=== PATIENT | female | born 1990 | race Caucasian/White ===

== ENCOUNTER → 2017-09-09 18:47 | Observation (INO) ==
[2017-09-09 17:11] LABS: Basophils % 0.2 %; Eosinophils % 0.2 %; Hematocrit 40.2 % (35.3-44.9); Hemoglobin 13.2 g/dL (11.5-15.4); Immature Granulocytes % 0.7 % (0-4); Lymphocytes # 2.1 K/mcL (0.6-4.6); Lymphocytes % 17.1 %; Mean Corpuscular HGB Conc 32.8 g/dL (31.6-35.5); Mean Corpuscular Hemoglobin 26.6 pg (28.0-33.3); Mean Corpuscular Volume 80.9 fL (83.0-100.0); Mean Platelet Volume 10.7 fL (9.4-12.4); Monocytes # 0.6 K/mcL (0.0-1.3); Monocytes % 4.8 %; Neutrophils # 9.3 K/mcL (1.6-8.9); Platelet Count 272 K/mcL (140-400); Red Blood Count 4.97 M/mcL (3.82-4.97); Red Cell Distribution Width 13.7 % (11.5-14.5)
[2017-09-09 17:14] VITALS: BP 140/84
[2017-09-09 17:24] LABS: Alanine Aminotransferase 13 Units/L (0-55); Aspartate Amino Transferase 16 Units/L (5-34); BUN/Creatinine Ratio 8 (6-26); Lactate Dehydrogenase 144 Units/L (159-327); Uric Acid 3.9 mg/dL (2.6-6.0); eGFR For African Americans > 60 (> 60); eGFR For Non-African Americans > 60 (> 60)
[2017-09-09 17:25] LABS: Amphetamine Screen,Urine Negative ng/mL (Cutoff=1000); Barbiturate Screen,Urine Negative ng/mL (Cutoff=200); Benzodiazepines Screen,Urine Negative ng/mL (Cutoff=200); Blood Urea Nitrogen 5 mg/dL (7-20); Cannabinoid Screen,Urine Negative ng/mL (Cutoff = 50); Cocaine Screen,Urine Negative ng/mL (Cutoff= 300); Opiate Screen,Urine Negative ng/mL (Cutoff=300); Phencyclidine Screen,Urine Negative ng/mL (Cutoff=25)
[2017-09-09 17:26] LABS: Creatinine,Urine 53 mg/dL
[2017-09-09 17:28] LABS: Protein/Creatinine Ratio,Urine < 0.13 mg/mg (0-0.20)
--- NOTE | 2017-09-09 18:16 | OB/GYN Progress Note ---
Date of Encounter: 09/09/17 Time of Encounter: 18:13 - Assessment and Plan (1) 39 weeks gestation of Current Visit: Yes Status: Acute Patient admitted for observation (2) Elevated BP without diagnosis of hypertension Current Visit: Yes Status: Acute PIH evaluation: Lab values including protein creat ratio WNL Subjective - Subjective Principal diagnosis: elevated BP Interval history: Patient is a 27 y/o at 39w2d presents to labor and delivery from OB office for PIH evaluation after having elevated BP in office. Patient denies any headache, dizziness or visual disturbances. Patient reports +FM, denies contractions, LOF or VB. SVE 1/80/-1. Antepartum ROS: movement normal, no loss of fluid, no vaginal bleeding, no contractions Objective - Vital Signs Vital Signs: Vital Signs Temp Pulse Resp BP 09/09/17 17:07 97.6 F 78 14 140/84 Intake and Output 09/09/17 09/09/17 09/09/17 07:59 15:59 23:59 Other: Weight 94.9 kg Patient Weight 09/09/17 23:59 Weight 94.9 kg - Exam FHR: auscultation normal, category 1 FHR comments: 120 bpm moderate variability +15x15 accels no decels noted. CAt. 1 tracing Auscultation: bilateral: normal Abdomen: Present: normal appearance, soft, gravid Uterus: Present: normal Cervical dilation: 1 Cervix effacement: 80 station: -1 Comments: contractions 3-4 min apart however, patient denies feeling contractions. - Labs Labs: Abnormal lab results WBC 12.1 K/mcL (4.3-11.1) H 09/09/17 16:55 MCV 80.9 fL (83.0-100.0) L 09/09/17 16:55 MCH 26.6 pg (28.0-33.3) L 09/09/17 16:55 Neutrophils # 9.3 K/mcL (1.6-8.9) H 09/09/17 16:55 BUN 5 mg/dL (7-20) L 09/09/17 16:55 Lactate Dehydrogenase 144 Units/L (159-327) L 09/09/17 16:55
--- NOTE | 2017-09-09 18:38 | Discharge Summary ---
Date of Encounter: 09/09/17 Time of Encounter: 18:37 - Discharge Diagnosis (1) 39 weeks gestation of Priority: Primary Status: Acute (2) Elevated BP without diagnosis of hypertension Priority: Secondary Status: Acute Comments: BP wnl Lab work WNL Patient scheduled Wednesday for follow up in office - Discharge Medications Home Medications: Vitamins 1 mg PO DAILY 09/09/17 [History] Allergies/Adverse Reactions: 3 Allergy/AdvReac Type Severity Reaction Status Date / Time No Known Allergies Allergy Verified 09/09/17 16:48 Data Procedures and tests throughout hospitalization: Laboratory Tests 09/09/17 09/09/17 09/09/17 16:55 16:55 16:55 WBC 12.1 H RBC 4.97 Hgb 13.2 Hct 40.2 MCV 80.9 L MCH 26.6 L MCHC 32.8 RDW 13.7 Plt Count 272 MPV 10.7 Immature Gran % 0.7 Seg Neutrophils % 77.0 Lymphocytes % 17.1 Monocytes % 4.8 Eosinophils % 0.2 Basophils % 0.2 Neutrophils # 9.3 H Lymphocytes # 2.1 Monocytes # 0.6 Eosinophils # 0.0 Basophils # 0.0 BUN Creatinine Est GFR ( Amer) Est GFR (Non-Af Amer) BUN/Creatinine Ratio Uric Acid AST ALT Lactate Dehydrogenase Urine Creatinine 53 Protein/Creatinin Ratio < 0.13 Urine Total Protein < 7 Urine Opiates Screen Negative Ur Barbiturates Screen Negative Ur Phencyclidine Scrn Negative Ur Amphetamines Screen Negative U Benzodiazepines Scrn Negative Urine Cocaine Screen Negative U Marijuana (THC) Screen Negative 09/09/17 16:55 WBC RBC Hgb Hct MCV MCH MCHC RDW Plt Count MPV Immature Gran % Seg Neutrophils % Lymphocytes % Monocytes % Eosinophils % Basophils % Neutrophils # Lymphocytes # Monocytes # Eosinophils # Basophils # BUN 5 L Creatinine 0.60 Est GFR ( Amer) > 60 Est GFR (Non-Af Amer) > 60 BUN/Creatinine Ratio 8 Uric Acid 3.9 AST 16 ALT 13 Lactate Dehydrogenase 144 L Urine Creatinine Protein/Creatinin Ratio Urine Total Protein Urine Opiates Screen Ur Barbiturates Screen Ur Phencyclidine Scrn Ur Amphetamines Screen U Benzodiazepines Scrn Urine Cocaine Screen U Marijuana (THC) Screen Labs on day of discharge: Labs from last 24 hours 09/09/17 09/09/17 09/09/17 16:55 16:55 16:55 WBC 12.1 H RBC 4.97 Hgb 13.2 Hct 40.2 MCV 80.9 L MCH 26.6 L MCHC 32.8 RDW 13.7 Plt Count 272 MPV 10.7 Immature Gran % 0.7 Seg Neutrophils % 77.0 Lymphocytes % 17.1 Monocytes % 4.8 Eosinophils % 0.2 Basophils % 0.2 Neutrophils # 9.3 H Lymphocytes # 2.1 Monocytes # 0.6 Eosinophils # 0.0 Basophils # 0.0 BUN 5 L Creatinine 0.60 Est GFR ( Amer) > 60 Est GFR (Non-Af Amer) > 60 BUN/Creatinine Ratio 8 Uric Acid 3.9 AST 16 ALT 13 Lactate Dehydrogenase 144 L Urine Creatinine 53 Protein/Creatinin Ratio < 0.13 Urine Total Protein < 7 Urine Opiates Screen Ur Barbiturates Screen Ur Phencyclidine Scrn Ur Amphetamines Screen U Benzodiazepines Scrn Urine Cocaine Screen U Marijuana (THC) Screen 09/09/17 16:55 WBC RBC Hgb Hct MCV MCH MCHC RDW Plt Count MPV Immature Gran % Seg Neutrophils % Lymphocytes % Monocytes % Eosinophils % Basophils % Neutrophils # Lymphocytes # Monocytes # Eosinophils # Basophils # BUN Creatinine Est GFR ( Amer) Est GFR (Non-Af Amer) BUN/Creatinine Ratio Uric Acid AST ALT Lactate Dehydrogenase Urine Creatinine Protein/Creatinin Ratio Urine Total Protein Urine Opiates Screen Negative Ur Barbiturates Screen Negative Ur Phencyclidine Scrn Negative Ur Amphetamines Screen Negative U Benzodiazepines Scrn Negative Urine Cocaine Screen Negative U Marijuana (THC) Screen Negative Date of admission: 09/09/17 16:31 Primary care physician: PCP NONE Discharging clinician: Lisa Turner Anticipated date of discharge: 09/09/17 - Patient Status Disposition: Home, Self-Care Condition: Good Functional capacity at discharge: independent ambulation - Discharge Instructions Follow Up With: NONE,PCP [Primary Care Provider] - Margret Begum CNM [Advanced Practice Nurse] - Additional Instructions: LABOR AND DELIVERY DISCHARGE INSTRUCTIONS Signs and Symptoms to be Reported to your Doctor Immediately: * Sudden gush, continuous or intermittent lead of fluid from vagina (note the time of gush and color of fluid) * Onset of bright red vaginal bleeding with or without pain (if you had a vaginal exam during this visit you may notice some dark red spotting. This is normal.) * Contractions that are 5 minutes apart (from the beginning of one contraction to the beginning of the next) and last 45-60 seonds; contractions that you can no longer walk, talk or laugh through. * A change in the baby's activity. This could be an increase or decrease in activity. * Severe headache which does not go away with tylenol. * Sudden swelling in the face, hands, arms and/or legs. * Upper abdominal pain - sometimes associated with heartburn or nausea and is not relieved by Maalox, Mylanta or Tums. * Kick Counts __ One hour after a meal, lay down on one side in a quiet place. Count the number of time the baby moves during an hour. If less than 6 movements, notify your physician Diet: *Force fluids, 8 to 10 tall glasses of fluid per day - may include popsicles and jello *Limit caffeine - this includes chocolate, coffee, tea, any soft drink containing such as all rani, Lior Yellow and Mountain Dew - Diet and Activity Activity: increase activity as tolerated Diet: regular diet Hospital Course [employer] Time spent discussing smoking cessation with patient: 3 to 10 minutes Time Attestation: Total time spent providing and/or coordinating discharge services: Time Spent: Less than 30 minutes Exam - Constitutional Vitals: Temp Pulse Resp BP 97.6 F 78 14 140/84 09/09/17 17:07 09/09/17 17:07 09/09/17 17:07 09/09/17 17:07 General appearance IM: A&O X 3, pleasant, answers questions appropriately - Respiratory Respiratory exam: Present: CTAB - Cardiovascular Cardiovascular exam IM: Present: RRR, +S1, +S2 - Extremities Exam Extremities exam IM: Present: full ROM, normal capillary refill, normal inspection - Other Additional findings: FHR 120 bpm moderate variability +15x15 accels no decels noted. Cat 1 tracing. contractions 3-4 min apart. - VTE Reasons for not Prescribing Prophylaxis: Treatment not Indicated - Low risk for VTE
== END | disposition home or self-care (01) ==
LOC: 1NENULAB
PROVIDERS: ADMIT Student in an Organized Health Care Education/Training Program; ATTEND Student in an Organized Health Care Education/Training Program

== ENCOUNTER 2017-09-13 17:56 | Inpatient (IN) ==
[2017-09-13 15:43] LABS: Basophils % 0.2 %; Eosinophils # 0.1 K/mcL (0.0-0.6); Eosinophils % 0.4 %; Hematocrit 37.8 % (35.3-44.9); Hemoglobin 12.5 g/dL (11.5-15.4); Immature Granulocytes % 0.7 % (0-4); Immature Platelets 5.5 % (1.1-6.1); Lymphocytes # 1.8 K/mcL (0.6-4.6); Lymphocytes % 15.8 %; Mean Corpuscular HGB Conc 33.1 g/dL (31.6-35.5); Mean Corpuscular Hemoglobin 26.5 pg (28.0-33.3); Mean Corpuscular Volume 80.3 fL (83.0-100.0); Mean Platelet Volume 10.4 fL (9.4-12.4); Monocytes # 0.7 K/mcL (0.0-1.3); Monocytes % 5.7 %; Neutrophils # 8.9 K/mcL (1.6-8.9); Platelet Count 262 K/mcL (140-400); Red Blood Count 4.71 M/mcL (3.82-4.97); Red Cell Distribution Width 13.7 % (11.5-14.5); Segmented Neutrophils % 77.2 %
[2017-09-13 15:56] LABS: Alanine Aminotransferase 13 Units/L (0-55); Aspartate Amino Transferase 16 Units/L (5-34); BUN/Creatinine Ratio 16 (6-26); Blood Urea Nitrogen 9 mg/dL (7-20); Lactate Dehydrogenase 156 Units/L (159-327); Uric Acid 3.9 mg/dL (2.6-6.0); eGFR For African Americans > 60 (> 60); eGFR For Non-African Americans > 60 (> 60)
[2017-09-13 15:58] LABS: Bilirubin,Urine Negative (Negative); Blood,Urine Negative (Negative); Clarity,Urine Clear (Clear); Color,Urine Yellow (Yellow); Glucose,Urine (UA) Normal (Normal); Ketones,Urine Negative (Negative); Leukocyte Esterase,Urine Negative (Negative); Nitrite,Urine Negative (Negative); Protein,Urine Negative (Neg-Trace); Specific Gravity,Urine 1.014 (1.010-1.025); Urobilinogen,Urine Normal (Normal)
[2017-09-13 16:35] LABS: Creatinine,Urine 45 mg/dL
[2017-09-13 16:37] LABS: Protein/Creatinine Ratio,Urine < 0.16 mg/mg (0-0.20)
--- NOTE | 2017-09-13 17:30 | OB/GYN History & Physical ---
Date of Encounter: 09/13/17 Time of Encounter: 17:27 Assessment and Plan (1) Elevated BP without diagnosis of hypertension Current visit: No Status: Acute Monitor BP per routine order PIH labs WNL (2) Non-stress test reactive Current visit: Yes Status: Acute (3) 39 weeks gestation of Current visit: No Status: Acute Admitted for induction of labor at 39.6 weeks History of Present Illness Chief complaint: Induction of Labor HPI: Ms. Ibarra is a 27 year old female at 39w 6d who arrived for PIH evaluation due to BP of 106's/100 in the office today. PIH panel completed and all labs WNL , patient denies headache, visual disturbances, and epigastric pain. Normal blood pressures while here for evaluation. Bilateral upper and lower DTR's +1, negative clonus. Patient offered induction of labor vs. expectant management with repeat ultrasound, NST later this week. Patient chose to continue with induction tonight. She denies pain at this time. Reports positive movement and denies LOF and vaginal bleeding. Blood type A+ GBS negative Rubella and Varicella Immune T. Pallidum negative Past Med Surg Social Fam HX - Past Medical History Source: patient Medical history: no medical history Psychiatric history: no psych history - Past Surgical History Surgical History: no surgical history, other (Tubes in ears as a child.) - Social History Smoking Status: Never smoker Smokeless Tobacco Status: No Alcohol use: none Drug use: none Occupational status: employed Current living situation: Home - Independent Activity Level: Independent ambulation Recent Out of Country Travel Within the Last 8 Weeks: No Exposure or Possible Exposure to Illness During Travel: No - Family History Mother Living Status: Still Living Hx Family Cardiac Disorders: No Hx Family Respiratory Disorders: No Hx Family Cancer: No Hx Family GI Disorders: No Hx Family Endocrine Disorder: Yes (diabetes) Hx Family Neuromuscular Disorders: No Hx Family Neurologic Disorders: No Hx Family HEENT Disorders: No Hx Family Autoimmune Disorders: No Obstetrical History - Pregnancies : 1 Para: 0 Term: 0 : 0 Ab's: 0 Livin Medications and Allergies Vitamins 1 mg PO DAILY 09/09/17 [History] 3 Allergy/AdvReac Type Severity Reaction Status Date / Time No Known Allergies Allergy Verified 09/09/17 16:48 Review of System OB All systems PM: reviewed and no additional remarkable complaints except as stated - Constitutional Constitutional ROS IM: no chills, no fever(s), no headache(s) - Nose, mouth, and throat Nose, mouth and throat: no headache(s) - Cardiovascular Cardiovascular: no chest pain, no edema, no palpitations - Respiratory Respiratory: no cough, no dyspnea - Gastrointestinal Gastrointestinal: no abdominal pain, no diarrhea, no nausea, no vomiting - Genitourinary Genitourinary: no difficulty urinating, no dysuria, no hematuria, no pelvic pain - Muscloskeletal Musculoskeletal: no abnormal gait, no limited range of motion - Integumentary Integumentary: as per HPI - Neurological Nerological: as per HPI, no abnormal movements, no abnormal speech, no behavioral changes - Psychiatric Psychiatric: as per HPI - Endocrine Endocrine: as per HPI - Hematologic/Lymphatic Hematologic/Lymphatic: as per HPI - Allergic/Immunologic Allergic/Immunologic: as per HPI Exam - Constitutional Constitutional: well developed, well nourished, no acute distress, average body habitus - Neck Neck exam: full ROM, normal inspection - Lungs Respiratory exam: CTAB - Cardiovascular Cardiovascular exam: RRR, +S1, +S2 - Breasts Breast: bilateral: normal - Abdomen Abdomen: Present: bowel sounds normal, gravid, non tender - Extremities Extremities exam: full ROM, normal capillary refill, normal inspection Deep Tendon Reflex Grade: 1+ Diminished - Vagina Vagina: Present: normal moisture - Cervix Dilation: 2 Effacement: 80 Station: -1 - Uterus Uterus exam: Present: normal size - Anus/Rectum Anus/Rectum: Present: normal perianal skin - Comments Comments: FHR 135 bpm, moderate variability, + 15x15 accels, no decels. Category I tracing. Results Result Diagrams: 09/13/17 15:30 09/13/17 15:30 Abnormal lab results WBC 11.6 K/mcL (4.3-11.1) H 09/13/17 15:30 MCV 80.3 fL (83.0-100.0) L 09/13/17 15:30 MCH 26.5 pg (28.0-33.3) L 09/13/17 15:30 Lactate Dehydrogenase 156 Units/L (159-327) L 09/13/17 15:30 All other labs normal. - VTE Reasons for not Prescribing Prophylaxis: Treatment not Indicated - Low risk for VTE
[~2017-09-13 17:56] MED LIST: *HR* Nalbuphine 20 MG/ML AMPUL IVP PRN; Famotidine 20 MG/2 ML VIAL IVP PRN; Naloxone 0.4 MG/ML INJ IVP PRN; Ondansetron 4 MG/2 ML VIAL IVP PRN
[2017-09-13] MEDS ORDERED: miSOPROStol 100 MCG TABLET PO ONE (18:15)
[2017-09-13] MEDS: Ringers Solution, Lactated 1,000 ML IVC SCH (20:09)
[2017-09-13 21:52] LABS: Amphetamine Screen,Urine Negative ng/mL (Cutoff=1000); Barbiturate Screen,Urine Negative ng/mL (Cutoff=200); Benzodiazepines Screen,Urine Negative ng/mL (Cutoff=200); Cannabinoid Screen,Urine Negative ng/mL (Cutoff = 50); Cocaine Screen,Urine Negative ng/mL (Cutoff= 300); Opiate Screen,Urine Negative ng/mL (Cutoff=300); Phencyclidine Screen,Urine Negative ng/mL (Cutoff=25)
[2017-09-14] MEDS ORDERED: Oxytocin 20 units/ LR 1000 mL 20 UNIT/1,000 ML BAG IVC SCH ×2 (04:45→21:59)
--- NOTE | 2017-09-14 04:55 | OB Labor Progress Note ---
Date of Encounter: 09/14/17 Time of Encounter: 04:52 Labor Progress Note - Subjective Subjective: Patient resting in bed. Discussed POC with patient. Patient denies any questions or concerns. - Cervix Cervix: 4/80/-1 - Heart Tones Heart Tones: 130 bpm moderate variability +15x15 accels no decels noted. Cat. 1 tracing - Preemption Preemption: 2.5-3 min apart - Interventions Interventions: SVE, AROM moderate amount clear fluid noted. IUPC placed without difficulty. Patient tolerated well. - Plan Plan: Continue labor management. Will start Pitocin to augment labor if needed. Patient may have nubain or epidural if desires.
--- NOTE | 2017-09-14 05:14 | Anesthesia Evaluation PreOp ---
Date of Encounter: 09/14/17 Time of Encounter: 05:12 - Past History Planned Operation: boo Cardiac History: HTN (PIH) Pulmonary History: Denies Any Significant HX RESIDENTIAL APPRAISER History: Denies Any Significant HX Other Medical History: Denies Any Significant HX Anesthesia History: No Prior Anesthetic Complications, Past Anesthesia (BMT) : Yes (40 weeks, g1) Alcohol Use: none Drug use: none Medications and Allergies Vitamins 1 mg PO DAILY 09/09/17 [History] 3 Allergy/AdvReac Type Severity Reaction Status Date / Time No Known Allergies Allergy Verified 09/09/17 16:48 - Meds/Allergy Pre-op Review Medications Reviewed: Yes Allergies Reviewed: Yes Beta Blockers on Current Med List: No Anesthesia Results - Labs 09/13/17 15:30 09/13/17 15:30 Anesthesia Exam O2 Sat Height 1.73 m Weight 94.7 kg BP 137/83 HR 67 Height: 68 Weight: 94q - HEENT Pupil (Motor): Pupils equal Mallampati: II Teeth: Normal Oral Opening: Greater than 3 - RESIDENTIAL APPRAISER LOC: Oriented RESIDENTIAL APPRAISER Motor: Normal RUE, Normal LUE, Normal RLE, Normal LLE, Normal Face RESIDENTIAL APPRAISER Sensory: Normal: RUE, LUE, RLE, LLE, Face - Cardiac Rhythm: Regular Murmur: None JVD: No Carotid Bruit: No - Pulmonary Breath Sounds: bilateral Clear Respiratory Effort: Symmetrical Anesthesia Assess/Plan ASA Score: 2 Modified Jing Scale for Level of Consciousness: Cooperative, oriented, and tranquil Anesthetic Plan: Regional Monitoring Plan: Standard Monitors
[2017-09-14] MEDS ORDERED: Epidural Premix (fent/bupiv) 110 ML EP ONE ×2 (07:28→12:55)
[2017-09-14] MEDS ORDERED: Epidural Premix (fent/bupiv) 110 ML EP SCH (07:30)
[2017-09-14] MEDS: Ringers Solution, Lactated 1,000 ML IVC SCH (08:00)
--- NOTE | 2017-09-14 08:01 | Anesthesia Procedures ---
Date of Encounter: 09/14/17 Time of Encounter: 07:59 Procedures: Anesthesia - Epidural/Spinal Patient ID/Chart reviewed: Yes Patient examined: Yes OB Eval: Gestational age: 40 OB Eval: : 1 OB Eval: Hx Para: 0 OB Eval: Dilated at (cm): 5 OB Eval: Contractions: Non-stressed pattern Consent Obtained: Yes Supplemental Oxygen: None/Room Air Site Prep: Aseptic Technique, Sterile prep and drape, Povidone-Iodine 1% Patient position: upright Local Anesthetic: Lidocaine 1% Amount of Local Anesthetic used: 3 Touhy Needle Gauge: 18 Touhy Needle Depth (cm): 9 Catheter Depth at Skin (cm): 19 Test Dose (1.5% Lido + Epi): Volume given (mls): 5 Test Dose Result: Negative Loading Dose: Other: 8mls of epidural pharm bag premix solution Loading Dose Administered: Thru Catheter Infusion Med: 0.125% Bupivacaine w/ 2 mcg/ml Fentanyl Infusion Rate (mls/hr): 15 ([id number]) Catheter Secured in Place: Tegaderm, Tape Interspace Used: L3-L4 Loss of Resistance (CHET): Yes Blood: No CSF: No Paresthesia: No Procedure: pt tolerated procedure well. no complications. vss. fhr stable. see qs for complete vitals. 134/78 hr 88 fhr 125
[2017-09-14 08:10] LABS: Amphetamine Screen,Urine Negative ng/mL (Cutoff=1000); Barbiturate Screen,Urine Negative ng/mL (Cutoff=200); Benzodiazepines Screen,Urine Negative ng/mL (Cutoff=200); Cannabinoid Screen,Urine Negative ng/mL (Cutoff = 50); Cocaine Screen,Urine Negative ng/mL (Cutoff= 300); Opiate Screen,Urine Negative ng/mL (Cutoff=300); Phencyclidine Screen,Urine Negative ng/mL (Cutoff=25)
[2017-09-14] MEDS ORDERED: Acetaminophen 325 MG TABLET PO PRN ×2 (15:01→21:59)
[2017-09-14 17:50] LABS: Prothrombin Time 10.4 Seconds (9.4-12.1)
[2017-09-14 17:52] LABS: Activated Partial Thrombo Time 23.2 Seconds (26.0-36.0)
--- NOTE | 2017-09-14 19:35 | OB/GYN Procedure Note ---
Delivery - Delivery Date: 09/14/17 Provider: Renzo Kingston Intrapartum events: none Delivery induction: AROM, oxytocin, misoprostol Delivery augmentation: rupture of membranes Estimated Blood Loss: 1,000 - (s) A Delivery Date: 09/14/17 Infant Delivery Time: 17:02 Presentation: vertex Position: AMINATA Gender: Male Viability: Viable Weight Gram: 4230 kg at 1 minute: 8 at 5 mins: 9 Shoulder Dystocia: not encountered Cord: nuchal cord, 3 umbilical vessels - Repair Laceration Description: Perineal - 4th Degree, Vaginal - Complications Delivery complications: hemorrhage - Disposition Mom disposition: stable in LDR [place] disposition: stable in LDR - Comments Comments: Patient status post normal spontaneous vaginal delivery of 9 lbs. 5 oz. from right occiput anterior presentation. Infant was delivered from right os. Anterior presentation the was a nuchal cord which was delivered through. Placenta was delivered intensely without incident. Shortly after delivery the placenta Pitocin drip was begun however patient did have brisk bleeding and uterine atony. Uterine exploration was performed there was no residual placental the placental tissue in vigorous uterine massage performed. Patient was given Methergine 0.2 mg followed by Cytotec 600 mg by mouth this did help from up uterus and the bleeding became minimal. Of note there was a deep right labial tear as well as a fourth degree laceration extended up to the left side. Be used 4-0 Vicryl under epidural anesthesia and began repair the rectum serosa and mucosa. The rectum was repaired in a 2 layer closure. Perineal muscle was then reapproximated with several 2-0 Vicryl interrupted sutures. Next I closed the deep right labial tear with 3-0 Vicryl with several interrupted sutures reapproximating tissues normal in typical fashion. This point we basically has second-degree laceration extended up to the left vagina approximately 5 cm long. This was closed with 3-0 Vicryl interrupted manner we would closed the second-degree laceration. Inspection of the anus within procedure showed it to be intact. Sponge needle and incident counts are correct patient recovered in labor delivery includes dictation.
[2017-09-14] MEDS ORDERED: *HR* HYDROcodone/Acet 5/325 mg TABLET PO PRN (21:59)
[2017-09-14] MEDS ORDERED: Sennosides 8.6 MG TABLET PO PRN (21:59)
[2017-09-14] MEDS ORDERED: Benzocaine/Menthol 56 GM AEROSOL SPRAY TP PRN (21:59)
[2017-09-14] MEDS ORDERED: Oxytocin 20 units/ LR 1000 mL 20 UNIT/1,000 ML BAG IVC ONE (21:59)
[2017-09-15] MEDS: Ibuprofen 600 MG TABLET PO PRN ×3 (00:04→08:38)
[2017-09-15 05:09] LABS: Basophils % 0.2 %; Eosinophils % 0.2 %; Hematocrit 33.9 % (35.3-44.9); Hemoglobin 11.1 g/dL (11.5-15.4); Immature Granulocytes % 0.7 % (0-4); Lymphocytes # 2.7 K/mcL (0.6-4.6); Lymphocytes % 16.2 %; Mean Corpuscular HGB Conc 32.7 g/dL (31.6-35.5); Mean Corpuscular Hemoglobin 26.8 pg (28.0-33.3); Mean Corpuscular Volume 81.9 fL (83.0-100.0); Mean Platelet Volume 10.9 fL (9.4-12.4); Monocytes # 1.1 K/mcL (0.0-1.3); Monocytes % 6.9 %; Neutrophils # 12.5 K/mcL (1.6-8.9); Platelet Count 236 K/mcL (140-400); Red Blood Count 4.14 M/mcL (3.82-4.97); Red Cell Distribution Width 13.9 % (11.5-14.5); Segmented Neutrophils % 75.8 %
--- NOTE | 2017-09-15 08:07 | Discharge Summary ---
Date of Encounter: 09/15/17 Time of Encounter: 06:30 - Discharge Diagnosis (1) Status post vaginal delivery Priority: Primary Status: Acute Comments: Pain well managed on po pain medication, passing flatus, desires discharge. (2) 39 weeks gestation of Priority: Primary Status: Resolved - Discharge Medications Prescriptions: Ibuprofen [Motrin] 600 mg PO Q6HR PRN #60 tablet PRN Reason: Cramping Docusate [Colace] 100 mg PO BID #30 capsule Home Medications: Vitamins 1 mg PO DAILY 09/09/17 [History] Docusate [Colace] 100 mg PO BID #30 capsule 09/15/17 [Rx] Ibuprofen [Motrin] 600 mg PO Q6HR PRN #60 tablet 09/15/17 [Rx] Allergies/Adverse Reactions: 3 Allergy/AdvReac Type Severity Reaction Status Date / Time No Known Allergies Allergy Verified 09/09/17 16:48 Data Procedures and tests throughout hospitalization: Laboratory Tests 09/13/17 09/13/17 09/13/17 15:00 15:30 15:30 WBC 11.6 H RBC 4.71 Hgb 12.5 Hct 37.8 MCV 80.3 L MCH 26.5 L MCHC 33.1 RDW 13.7 Plt Count 262 MPV 10.4 Immature Gran % 0.7 Seg Neutrophils % 77.2 Lymphocytes % 15.8 Monocytes % 5.7 Eosinophils % 0.4 Basophils % 0.2 Neutrophils # 8.9 Lymphocytes # 1.8 Monocytes # 0.7 Eosinophils # 0.1 Basophils # 0.0 Immature Plt Fraction 5.5 PT INR APTT Fibrinogen BUN Creatinine Est GFR ( Amer) Est GFR (Non-Af Amer) BUN/Creatinine Ratio Uric Acid AST ALT Lactate Dehydrogenase Urine Color Yellow Urine Clarity Clear Urine pH 7.0 Ur Specific [place] 1.014 Urine Protein Negative Urine Glucose (UA) Normal Urine Ketones Negative Urine Blood Negative Urine Nitrite Negative Urine Bilirubin Negative Urine Urobilinogen Normal Ur Leukocyte Esterase Negative Ur Culture Indicated? NO Urine Creatinine Protein/Creatinin Ratio Urine Total Protein Urine Opiates Screen Negative Ur Barbiturates Screen Negative Ur Phencyclidine Scrn Negative Ur Amphetamines Screen Negative U Benzodiazepines Scrn Negative Urine Cocaine Screen Negative U Marijuana (THC) Screen Negative Blood Type Antibody Screen 09/13/17 09/13/17 09/14/17 15:30 15:30 05:11 WBC RBC Hgb Hct MCV MCH MCHC RDW Plt Count MPV Immature Gran % Seg Neutrophils % Lymphocytes % Monocytes % Eosinophils % Basophils % Neutrophils # Lymphocytes # Monocytes # Eosinophils # Basophils # Immature Plt Fraction PT INR APTT Fibrinogen BUN 9 Creatinine 0.58 Est GFR ( Amer) > 60 Est GFR (Non-Af Amer) > 60 BUN/Creatinine Ratio 16 Uric Acid 3.9 AST 16 ALT 13 Lactate Dehydrogenase 156 L Urine Color Urine Clarity Urine pH Ur Specific [place] Urine Protein Urine Glucose (UA) Urine Ketones Urine Blood Urine Nitrite Urine Bilirubin Urine Urobilinogen Ur Leukocyte Esterase Ur Culture Indicated? Urine Creatinine 45 Protein/Creatinin Ratio < 0.16 Urine Total Protein < 7 Urine Opiates Screen Negative Ur Barbiturates Screen Negative Ur Phencyclidine Scrn Negative Ur Amphetamines Screen Negative U Benzodiazepines Scrn Negative Urine Cocaine Screen Negative U Marijuana (THC) Screen Negative Blood Type Antibody Screen 09/14/17 09/14/17 09/15/17 17:22 17:22 04:52 WBC 16.4 H RBC 4.14 Hgb 11.1 L Hct 33.9 L MCV 81.9 L MCH 26.8 L MCHC 32.7 RDW 13.9 Plt Count 236 MPV 10.9 Immature Gran % 0.7 Seg Neutrophils % 75.8 Lymphocytes % 16.2 Monocytes % 6.9 Eosinophils % 0.2 Basophils % 0.2 Neutrophils # 12.5 H Lymphocytes # 2.7 Monocytes # 1.1 Eosinophils # 0.0 Basophils # 0.0 Immature Plt Fraction PT 10.4 INR 1.0 APTT 23.2 L Fibrinogen 526 H BUN Creatinine Est GFR ( Amer) Est GFR (Non-Af Amer) BUN/Creatinine Ratio Uric Acid AST ALT Lactate Dehydrogenase Urine Color Urine Clarity Urine pH Ur Specific [place] Urine Protein Urine Glucose (UA) Urine Ketones Urine Blood Urine Nitrite Urine Bilirubin Urine Urobilinogen Ur Leukocyte Esterase Ur Culture Indicated? Urine Creatinine Protein/Creatinin Ratio Urine Total Protein Urine Opiates Screen Ur Barbiturates Screen Ur Phencyclidine Scrn Ur Amphetamines Screen U Benzodiazepines Scrn Urine Cocaine Screen U Marijuana (THC) Screen Blood Type A POSITIVE Antibody Screen NEGATIVE Labs on day of discharge: Labs from last 24 hours 09/15/17 09/14/17 09/14/17 04:52 17:22 17:22 WBC 16.4 H RBC 4.14 Hgb 11.1 L Hct 33.9 L MCV 81.9 L MCH 26.8 L MCHC 32.7 RDW 13.9 Plt Count 236 MPV 10.9 Immature Gran % 0.7 Seg Neutrophils % 75.8 Lymphocytes % 16.2 Monocytes % 6.9 Eosinophils % 0.2 Basophils % 0.2 Neutrophils # 12.5 H Lymphocytes # 2.7 Monocytes # 1.1 Eosinophils # 0.0 Basophils # 0.0 PT 10.4 INR 1.0 APTT 23.2 L Fibrinogen 526 H Urine Opiates Screen Ur Barbiturates Screen Ur Phencyclidine Scrn Ur Amphetamines Screen U Benzodiazepines Scrn Urine Cocaine Screen U Marijuana (THC) Screen Blood Type A POSITIVE Antibody Screen NEGATIVE 09/14/17 05:11 WBC RBC Hgb Hct MCV MCH MCHC RDW Plt Count MPV Immature Gran % Seg Neutrophils % Lymphocytes % Monocytes % Eosinophils % Basophils % Neutrophils # Lymphocytes # Monocytes # Eosinophils # Basophils # PT INR APTT Fibrinogen Urine Opiates Screen Negative Ur Barbiturates Screen Negative Ur Phencyclidine Scrn Negative Ur Amphetamines Screen Negative U Benzodiazepines Scrn Negative Urine Cocaine Screen Negative U Marijuana (THC) Screen Negative Blood Type Antibody Screen Date of admission: 09/13/17 17:56 Primary care physician: PCP NONE Consults: 09/14/17 21:59 Consult to Hatch Boss [CONS] Routine Comment: Vaginal delivery, consult needed Discharging clinician: Adolfo Devries Anticipated date of discharge: 09/15/17 - Patient Status Disposition: Home, Self-Care Condition: Good Functional capacity at discharge: independent ambulation Overall status at discharge: patient is progressing back to baseline - Discharge Instructions - Diet and Activity Activity: resume usual activities as tolerated Diet: regular diet Hospital Course Reason for admission: induction of labor, IUP at term Delivery: Episiotomy: none Laceration: 4th degree Other procedures: none complications: perineal laceration Discharge diagnosis: IUP at term delivered baby: male Hospital course: Ms. Ibarra is a 27 year old female that presented at 39w 6d for PIH evaluation due to BP of 106's/100 in the office. PIH panel completed and all labs were WNL. Patient denied headache, visual disturbances, and epigastric pain. Normal blood pressures while here for evaluation. Bilateral upper and lower DTR's +1, negative clonus. Patient offered induction of labor vs. expectant management with repeat ultrasound, NST later this week. Patient chose to continue with induction. She denied pain at this time. Reported positive movement and denied LOF and vaginal bleeding. Patient status post normal spontaneous vaginal delivery of 9 lbs. 5 oz. infant from right occiput anterior presentation. Infant was delivered from right os. Anterior presentation the was a nuchal cord which was delivered through. Placenta was delivered intensely without incident. Shortly after delivery the placenta Pitocin drip was begun however patient did have brisk bleeding and uterine atony. Uterine exploration was performed there was no residual placental the placental tissue in vigorous uterine massage performed. Patient was given Methergine 0.2 mg followed by Cytotec 600 mg by mouth this did help from up uterus and the bleeding became minimal. Of note there was a deep right labial tear as well as a fourth degree laceration extended up to the left side. Be used 4-0 Vicryl under epidural anesthesia and began repair the rectum serosa and mucosa. The rectum was repaired in a 2 layer closure. Perineal muscle was then reapproximated with several 2-0 Vicryl interrupted sutures. Next I closed the deep right labial tear with 3-0 Vicryl with several interrupted sutures reapproximating tissues normal in typical fashion. This point we basically has second-degree laceration extended up to the left vagina approximately 5 cm long. This was closed with 3-0 Vicryl interrupted manner we would closed the second-degree laceration. Inspection of the anus within procedure showed it to be intact. Sponge needle and incident counts are correct patient recovered in labor delivery includes dictation. When seen today, patient says she is doing well and in good mood. Patient has been breast-feeding the baby and the baby has been doing well. She denies any headaches or vision changes. She has had a good appetite. She has been able to void. No bowel movements yet, but she has been able to pass gas. She has been able to ambulate well. She has moderate amount of vaginal bleeding, but says that it has improved since the delivery. She denies any abdominal cramping. She denies any chest pain, nausea, vomiting, shortness of breath, dizziness, fever, or chills. She has a follow-up appointment with Tia Peace on 10/12/17. Delivery - Delivery Date: 09/14/17 Provider: Renzo Kingston Intrapartum events: none Delivery induction: AROM, oxytocin, misoprostol Delivery augmentation: rupture of membranes Estimated Blood Loss: 1,000 - Infant (s) Infant A Infant Delivery Date: 09/14/17 Delivery Time: 17:02 Presentation: vertex Position: AMINATA Gender: Male Viability: Viable Weight Gram: 4230 kg at 1 minute: 8 at 5 mins: 9 Shoulder Dystocia: not encountered Cord: nuchal cord, 3 umbilical vessels - Repair Laceration Description: Perineal - 4th Degree, Vaginal - Complications Delivery complications: hemorrhage Time Attestation: Total time spent providing and/or coordinating discharge services: Time Spent: Less than 30 minutes Exam - Constitutional Vitals: Temp Pulse Resp BP Pulse Ox 97.4 F L 80 16 109/61 98 09/15/17 05:00 09/15/17 05:00 09/15/17 05:00 09/15/17 05:00 09/15/17 05:00 General appearance IM: A&O X 3, pleasant, no acute distress, answers questions appropriately - Respiratory Respiratory exam: Present: CTAB - Cardiovascular Cardiovascular exam IM: Present: RRR, +S1, +S2 - GI/Abdominal GI/Abdominal exam IM: normal bowel sounds, soft - Uterine Tone: Firm - Extremities Exam Extremities exam IM: Present: full ROM, normal capillary refill, normal inspection, radial pulses palpable and symmetrical. Absent: pedal edema Additional comments: Pedal pulses intact and symmetrical bilaterally. - Neurological Exam Neurological exam: reflexes normal - Psychiatric Additional comments: reports good mood
[2017-09-15 08:10] VITALS: BP 101/66
[2017-09-15] MEDS ORDERED: Prenatal Vit/FA 1 EACH TABLET PO SCH (09:00)
== END 2017-09-15 19:15 | disposition home or self-care (01) | DRG 774 ==
LOC: 1NENULAB → UNDODISIN 19:34 → 1NENULAB 22:41 → 1NENUOBS 09-14 20:31
PROVIDERS: ADMIT Obstetrics & Gynecology; ATTEND Obstetrics & Gynecology

== ENCOUNTER 2019-10-27 05:41 | Inpatient (IN) ==
[2019-10-27] MEDS ORDERED: Ringers Solution, Lactated 1,000 ML IVC SCH ×2 (05:45→12:15)
[2019-10-27] MEDS ORDERED: Metoclopramide 10 MG/2 ML VIAL IVP PRN ×2 (05:45→12:15)
[2019-10-27] MEDS ORDERED: Famotidine 20 MG/2 ML VIAL IVP PRN (05:45)
[2019-10-27] MEDS ORDERED: Naloxone 0.4 MG/ML INJ IVP PRN ×2 (05:45→12:15)
[2019-10-27 06:41] LABS: Basophils % 0.2 %; Eosinophils # 0.1 K/mcL (0.0-0.6); Eosinophils % 0.6 %; Hematocrit 40.5 % (35.3-44.9); Hemoglobin 13.6 g/dL (11.5-15.4); Immature Granulocytes % 0.8 % (0-4); Lymphocytes # 2.3 K/mcL (0.6-4.6); Lymphocytes % 21.1 %; Mean Corpuscular HGB Conc 33.6 g/dL (31.6-35.5); Mean Corpuscular Volume 80.4 fL (83.0-100.0); Mean Platelet Volume 10.7 fL (9.4-12.4); Monocytes # 0.6 K/mcL (0.0-1.3); Monocytes % 5.8 %; Neutrophils # 7.7 K/mcL (1.6-8.9); Platelet Count 225 K/mcL (140-400); Red Blood Count 5.04 M/mcL (3.82-4.97); Red Cell Distribution Width 14.4 % (11.5-14.5); Segmented Neutrophils % 71.5 %; White Blood Count 10.8 K/mcL (4.3-11.1)
[2019-10-27] MEDS ORDERED: CeFAZolin Premix DUPLEX 2,000 MG/50 ML BAG IVPB ONE (07:12)
[2019-10-27 07:41] LABS: Amphetamine Screen,Urine Negative ng/mL (Cutoff=1000); Barbiturate Screen,Urine Negative ng/mL (Cutoff=200); Benzodiazepines Screen,Urine Negative ng/mL (Cutoff=300); Cannabinoid Screen,Urine Negative ng/mL (Cutoff = 50); Cocaine Screen,Urine Negative ng/mL (Cutoff= 300); Opiate Screen,Urine Negative ng/mL (Cutoff=300); Phencyclidine Screen,Urine Negative ng/mL (Cutoff=25)
[2019-10-27] MEDS ORDERED: *HR* Morphine Sulfate/PF 10 MG/10 ML AMPUL ONE (08:00)
[2019-10-27] MEDS ORDERED: Dexamethasone 4 MG/ML VIAL ONE (08:01)
[2019-10-27] MEDS ORDERED: Ondansetron 4 MG/2 ML VIAL ONE (08:01)
[2019-10-27] MEDS ORDERED: *HR* Oxytocin 10 UNIT/ML VIAL IM ONE (08:01)
[2019-10-27] MEDS ORDERED: Acetaminophen IV 1,000 MG/100 ML INFUS..BTL IVPB ONE (08:32)
[2019-10-27] MEDS ORDERED: Ondansetron 4 MG/2 ML VIAL IVP ONE (08:32)
[2019-10-27] MEDS ORDERED: *HR* HYDROmorphone (PF) 1 MG/ML SYRINGE IVP PRN (08:32)
[2019-10-27] MEDS ORDERED: *HR* OxyCODONE Immed Rel 5 MG TABLET PO PRN (08:32)
[2019-10-27] MEDS ORDERED: EPHEDrine 50 MG/ML VIAL ONE (08:48)
[2019-10-27] MEDS ORDERED: Ringers Solution, Lactated 1,000 ML ONE (08:56)
[2019-10-27] MEDS ORDERED: Oxytocin 20 units/ LR 1000 mL 20 UNIT/1,000 ML BAG IVC ONE (11:07)
[2019-10-27] MEDS ORDERED: Oxytocin 20 units/ LR 1000 mL 20 UNIT/1,000 ML BAG IVC SCH ×3 (11:15→12:15)
[2019-10-27] MEDS ORDERED: Sennosides 8.6 MG TABLET PO PRN (12:15)
[2019-10-27] MEDS ORDERED: Simethicone 80 MG TAB.CHEW PO PRN (12:15)
[2019-10-27] MEDS ORDERED: Ondansetron 4 MG/2 ML VIAL IVP PRN (12:15)
[2019-10-27] MEDS ORDERED: *HR* OxyCODONE/APAP 5/325 TABLET PO PRN (12:15)
[2019-10-28] MEDS: Ibuprofen 600 MG TABLET PO PRN ×2 (04:48→11:47)
[2019-10-28 08:16] LABS: Basophils % 0.3 %; Eosinophils % 0.3 %; Hematocrit 34.5 % (35.3-44.9); Immature Granulocytes % 0.5 % (0-4); Lymphocytes # 1.9 K/mcL (0.6-4.6); Lymphocytes % 16.6 %; Mean Corpuscular HGB Conc 32.8 g/dL (31.6-35.5); Mean Corpuscular Hemoglobin 27.2 pg (28.0-33.3); Mean Corpuscular Volume 83.1 fL (83.0-100.0); Mean Platelet Volume 10.8 fL (9.4-12.4); Monocytes # 0.7 K/mcL (0.0-1.3); Monocytes % 6.4 %; Neutrophils # 8.7 K/mcL (1.6-8.9); Platelet Count 181 K/mcL (140-400); Red Blood Count 4.15 M/mcL (3.82-4.97); Red Cell Distribution Width 14.7 % (11.5-14.5); Segmented Neutrophils % 75.9 %; White Blood Count 11.4 K/mcL (4.3-11.1)
[2019-10-28 08:17] LABS: Hemoglobin 11.3 g/dL (11.5-15.4)
[2019-10-28 08:59] VITALS: BP 103/63
[2019-10-28] MEDS ORDERED: PRENATAL VITAMINS PO SCH (09:00)
[2019-10-28] MEDS ORDERED: Prenatal Vit/FA 1 EACH TABLET PO SCH (09:00)
== END 2019-10-28 17:12 | disposition home or self-care (01) | DRG 788 ==
LOC: 1NENULAB 05:41 → 1NENUOBS 12:13
PROVIDERS: ADMIT Obstetrics & Gynecology; ATTEND Obstetrics & Gynecology